=== PATIENT | male | born 1995 | race Caucasian/White ===

== ENCOUNTER 2018-02-06 15:27 | Emergency (ER) | payer OTHER ==
[~2018-02-06] VITALS: Ht 162.6 cm; Wt 68.0 kg
--- NOTE | ~2018-02-06 | EKG ---
[place] [address] [employer] [address] ELECTROCARDIOGRAM REPORT Name: JOSE DOWNING [id number] Admission: 02/06/18 Attend Phys: Discharge: Date of : [birth year] Report #: [id number] THIS REPORT FOR: //name// [facility] ED Test Date: 2018-02-06 Test Time: 15:48:17 Pat Name: JOSE DOWNING Department: Room: Gender: Overnight Associate: laurennani : 1995 Requested By: Shraddha Gil Order Number: [id number] MD: Henrik Cordoba Measurements Intervals [place] Rate: 61 P: 15 NE: 125 QRS: 60 QRSD: 92 T: 34 QT: 399 QTc: 402 Interpretive Statements Sinus rhythm ST elev, probable normal early repol pattern No previous ECG available for comparison Electronically Signed On 02-06-2018 16:40:17 CDT by Henrik Cordoba [email or web address] <ELECTRONICALLY SIGNED> By: Henrik Cordoba MD, [facility] 02/06/18 1640 [id number] 1548 Henrik Cordoba MD, FACC /EPI
[~2018-02-06 15:27] MED LIST: AMOXICILLIN 50500 M1 PO; BENADRYL25 MG PO; NOHOMEMEDICATIONS; NORCO 5-325 TA1 EACH PO; PREDNISONE 20 M20 MG PO; ULTRAM 50MG TAB50 MG PO; VALTREX1000 MG PO
[2018-02-06 16:32] LABS: ABSOLUTE NEUTROPHILS 10.9 thou/uL (1.4-8.2); BASOPHILS 0.8 % (0.0-2.0); EOSINOPHILS 2.6 % (0.0-3.0); HEMATOCRIT 43.1 % (42.0-52.0); HEMOGLOBIN 14.5 gm/dL (14.0-18.0); LYMPHOCYTES 12.9 % (24.0-44.0); MCH 30.6 pg (26.0-34.0); MCHC 33.6 g/dL (28.0-37.0); MCV 91.2 fL (80.0-100.0); MONOCYTES 4.5 % (1.0-8.0); PLATELET COUNT 250 thou/uL (150-400); POLYS 79.2 % (36.0-66.0); RBC 4.72 mil/uL (4.50-6.00); RDW 14.1 % (10.5-14.5); WBC 13.7 thou/uL (4.0-11.0)
[2018-02-06 16:39] LABS: ANION GAP 10 mmol/L (7-16); BUN 14 mg/dL (7-18); CALCIUM 9.7 mg/dL (8.5-10.1); CHLORIDE 104 mmol/L (98-107); CO2 24 mmol/L (21-32); CREATININE 0.9 mg/dL (0.7-1.3); GLUCOSE 98 mg/dL (74-106); POTASSIUM 3.9 mmol/L (3.5-5.1); SODIUM 138 mmol/L (136-145)
[2018-02-06 16:48] LABS: TROPONIN-I < 0.04 ng/mL (<0.06)
[2018-02-06 17:51] LABS: AMP/METHAMP Negative (Negative); BARBITURATES Negative (Negative); BENZODIAZEPINES Negative (Negative); COCAINE POSITIVE (Negative); METHADONE Negative (Negative); OPIATES Negative (Negative); PCP Negative (Negative)
[2018-02-06] MEDS ORDERED: VENTOLIN HFA 1818 GM INH (18:19)
[2018-02-06 18:21] VITALS: BP 127/79
== END 2018-02-06 18:22 | disposition home or self-care (01) ==
LOC: ER 15:27
PROVIDERS: Emergency Medicine
DX: R07.89 Other chest pain (principal); F14.10 Cocaine abuse, uncomplicated

== ENCOUNTER 2018-09-14 22:13 | Emergency (ER) | payer OTHER ==
[~2018-09-14] VITALS: Ht 162.6 cm; Wt 68.0 kg
[~2018-09-14 22:13] MED LIST changes: +VENTOLIN HFA 1818 GM INH
[2018-09-14 23:13] VITALS: BP 124/59
== END 2018-09-14 23:13 | disposition home or self-care (01) ==
LOC: ER 22:13
DX: R20.2 Paresthesia of skin (principal)